=== PATIENT | female | born 1990 | race Caucasian/White ===

== ENCOUNTER 2016-08-16 17:31 | Emergency (ER) | payer MEDICAID ==
[2016-08-16 17:38] VITALS: RESP 18
--- NOTE | 2016-08-16 18:59 | C.PDOC ---
History Of Present Illness 26 y/o female presents to ED with c/o abdominal pain, nausea, vomiting, and diarrhea since yesterday. Patient's 4 y/o son also has similar symptoms at home. Denies fever, chills, cough, sore throat, headache, or other associated symptoms. Time Seen by Provider: 08/16/16 18:02 Chief Complaint (Nursing): GI Problem History Per: Patient History/Exam Limitations: no limitations Onset/Duration Of Symptoms: Days Current Symptoms Are (Timing): Still Present Recent travel outside of the [place]: No Past Medical History Reviewed: Historical Data, Nursing Documentation, Vital Signs Vital Signs: Last Vital Signs Temp 98.2 F 08/16/16 19:49 Pulse 75 08/16/16 19:49 Resp 18 08/16/16 19:49 BP 125/75 08/16/16 19:49 Pulse Ox 98 08/16/16 19:49 - Medical History PMH: No Chronic Diseases Surgical History: No Surg Hx Family History: States: Unknown Family Hx - Social History Hx Tobacco Use: No Hx Alcohol Use: Yes Hx Substance Use: No - Immunization History Hx Tetanus Toxoid Vaccination: No Hx Influenza Vaccination: No Hx Pneumococcal Vaccination: No Review Of Systems Except As Marked, All Systems Reviewed And Found Negative. Constitutional: Negative for: Fever, Chills Respiratory: Negative for: Cough, Shortness of Breath Gastrointestinal: Positive for: Nausea, Vomiting, Abdominal Pain, Diarrhea Skin: Negative for: Rash Neurological: Negative for: Headache, Dizziness Physical Exam - Physical Exam Appears: Well, Non-toxic, No Acute Distress Skin: Normal Color, Warm, Dry, No Rash Head: Atraumatic, Normacephalic Eye(s): bilateral: Normal Inspection Ear(s): Bilateral: Normal Oral Mucosa: Moist Throat: No Erythema, No Exudate Neck: Supple Chest: Symmetrical Cardiovascular: Rhythm Regular, No Friction Rub, No Murmur Respiratory: Normal Breath Sounds, No Rales, No Rhonchi, No Wheezing Gastrointestinal/Abdominal: Bowel Sounds (active), Soft, No Tenderness, No Distention, No Guarding, No Rebound Back: Normal Inspection, No CVA Tenderness Extremity: Normal ROM, Capillary Refill (< 2 sec. ) Neurological/Psych: Oriented x3, Normal Speech, Normal Cognition, Normal Motor Gait: Steady ED Course And Treatment O2 Sat by Pulse Oximetry: 100 (RA) Pulse Ox Interpretation: Normal Progress Note: On re-exam, patient reports improvement of symptoms. Lungs are CTA, heart is RRR, abdomen is soft, non-tender and tolerating PO well. Ambulatory in the ED with steady gait. Follow up with the medical doctor within 1-2 days. Return if worsened. Disposition - Disposition Referrals: [facility] [Outside] Disposition: HOME/ ROUTINE Disposition Time: 19:40 Condition: GOOD Additional Instructions: Follow up with the medical doctor within 1-2 days. Return if worsened. Prescriptions: Ondansetron ODT [Zofran ODT] 1 odt PO BID PRN #10 odt PRN Reason: Nausea/Vomiting Instructions: Gastroenteritis (ED) - Clinical Impression Clinical Impression: Gastroenteritis - PA / HOOD MAKER / Resident Statement MD/DO has reviewed & agrees with the documentation as recorded. - Scribe Statement The provider has reviewed the documentation as recorded by the Jaleel Jensen Provider Scribe Attestation: All medical record entries made by the Jaleel were at my direction and personally dictated by me. I have reviewed the chart and agree that the record accurately reflects my personal performance of the history, physical exam, medical decision making, and the department course for this patient. I have also personally directed, reviewed, and agree with the discharge instructions and disposition.
[2016-08-16 19:51] VITALS: BP 125/75; PULSE 75; TEMP 98.2
[2016-08-17 23:03] VITALS: O2SAT 100
== END 2016-08-16 19:51 | disposition home or self-care (01) ==
LOC: C.ER 17:31
DX: K52.9 Noninfective gastroenteritis and colitis, unspecified (principal)

== ENCOUNTER 2017-09-19 09:18 | Emergency (ER) | payer MEDICAID ==
[2017-09-19 09:28] VITALS: BMI 34.9
[2017-09-19 09:31] VITALS: TEMP 97.9
[2017-09-19] MEDS ORDERED: Dexamethasone 4 mg/1 ml IVP STA (09:43)
[2017-09-19] MEDS ORDERED: Lidocaine 5% Patch TD STA (09:45)
[2017-09-19 09:53] LABS: HCG,QUALITATIVE URINE NEGATIVE (NEGATIVE)
[2017-09-19] MEDS ORDERED: Lidocaine 5% Patch TD ONE (09:56)
[2017-09-19 09:58] LABS: SQUAMOUS EPITHIAL 6 /hpf (0-5); URINE BILIRUBIN NEGATIVE (NEGATIVE); URINE BLOOD 1+ (NEGATIVE); URINE CLARITY Clear (Clear); URINE COLOR Yellow (YELLOW); URINE GLUCOSE (UA) NORMAL (Normal); URINE LEUKOCYTE ESTERASE NEG Leu/uL (Negative); URINE PROTEIN NEGATIVE (NEGATIVE); URINE UROBILINOGEN NORMAL mg/dL (0.2-1.0)
--- NOTE | 2017-09-19 10:34 | RAD ---
PROCEDURE: Radiographs of the Lumbar Spine. HISTORY: low back pain COMPARISON: No prior. FINDINGS: BONES: Normal alignment. No listhesis. No fracture. DISC SPACES: Unremarkable. OTHER FINDINGS: None. IMPRESSION: Unremarkable radiographs of the lumbar spine.
[2017-09-19 10:53] VITALS: BP 109/70; PULSE 70; RESP 20; O2SAT 99
--- NOTE | 2017-09-19 11:02 | C.PDOC ---
History Of Present Illness Patient presents to ED with c/o left lower back pain since last night radiating to left leg worse with movement and bending forward. Patient states she took OTC advil with no improvement and reports similar episodes in the past. Patient denies trauma, numbness, weakness, abdominal pain, bowel/bladder incontinence or any other complaints at this time. Time Seen by Provider: 09/19/17 09:34 Chief Complaint (Nursing): Back Pain History Per: Patient History/Exam Limitations: no limitations Onset/Duration Of Symptoms: Days Current Symptoms Are (Timing): Still Present Quality Of Discomfort: "Pain" Exacerbating Factor(s): Movement Past Medical History Reviewed: Historical Data, Nursing Documentation, Vital Signs Vital Signs: Last Vital Signs Temp 97.9 F 09/19/17 09:28 Pulse 70 09/19/17 10:53 Resp 20 09/19/17 10:53 BP 109/70 09/19/17 10:53 Pulse Ox 99 09/19/17 11:20 - Medical History PMH: No Chronic Diseases Surgical History: No Surg Hx Family History: States: No Known Family Hx - Social History Hx Tobacco Use: No Hx Alcohol Use: Yes Hx Substance Use: No - Immunization History Hx Tetanus Toxoid Vaccination: No Hx Influenza Vaccination: No Hx Pneumococcal Vaccination: No Review Of Systems Except As Marked, All Systems Reviewed And Found Negative. Constitutional: Negative for: Fever, Chills Gastrointestinal: Negative for: Nausea, Vomiting Musculoskeletal: Positive for: Back Pain Skin: Negative for: Rash Neurological: Negative for: Weakness, Numbness Physical Exam - Physical Exam Appears: Non-toxic, No Acute Distress Skin: Warm, Dry, No Rash Head: Atraumatic, Normacephalic Eye(s): bilateral: Normal Inspection, PERRL, EOMI Ear(s): Bilateral: Normal Oral Mucosa: Moist Throat: Normal, No Erythema, No Exudate Neck: Normal ROM, Supple Cardiovascular: Rhythm Regular Respiratory: Normal Breath Sounds, No Rales, No Rhonchi, No Wheezing Gastrointestinal/Abdominal: Soft, No Tenderness, No Guarding, No Rebound Back: No CVA Tenderness, Muscle Spasm, Other (left sided paralumbar tenderness) Extremity: Normal ROM, No Tenderness, No Swelling Neurological/Psych: Oriented x3, Normal Speech, Normal Cognition, Normal Motor, Normal Sensation Gait: Steady ED Course And Treatment O2 Sat by Pulse Oximetry: 99 (RA) Pulse Ox Interpretation: Normal Medical Decision Making Medical Decision Making: On re-exam, the patient reports improvement of symptoms. Lungs are CTA, heart is RRR, abdomen is soft, non-tender and tolerating Po well. Ambulatory in the ED with steady gait. Patient was instructed to follow up with the medical doctor /clinic within 1-2 days. Return to the ED if worsened. Disposition - Disposition Referrals: Damion Palma MD [Non-Staff] - Disposition: HOME/ ROUTINE Disposition Time: 10:56 Condition: GOOD Additional Instructions: Follow up with the medical doctor within 1-2 days. Return if worsened. Prescriptions: Cyclobenzaprine [Flexeril] 5 mg PO TID #21 tab Lidocaine 5% [Lidoderm] 1 each TP DAILY #10 patch Naproxen [Naprosyn] 500 mg PO BID #20 tab Instructions: Low Back Pain in Adults, Sciatica Exercises Forms: [facility] (Comoran), Work Excuse - Clinical Impression Clinical Impression: Sciatica, Low back pain - PA / ASSISTANT PRESS OPERATOR / Resident Statement MD/DO has reviewed & agrees with the documentation as recorded. - Scribe Statement The provider has reviewed the documentation as recorded by the Lunaibfidel Anderson All medical record entries made by the Jaleel were at my direction and personally dictated by me. I have reviewed the chart and agree that the record accurately reflects my personal performance of the history, physical exam, medical decision making, and the department course for this patient. I have also personally directed, reviewed, and agree with the discharge instructions and disposition.
== END 2017-09-19 11:08 | disposition home or self-care (01) ==
LOC: C.ER 09:18
DX: M54.40 Lumbago with sciatica, unspecified side (principal)
CPT/HCPCS: 72100; 81001; 84703; 96372; 96374; 99283; J1100; J1885

== ENCOUNTER 2018-08-03 11:29 | Emergency (ER) | payer MEDICAID ==
[2018-08-03 11:29] VITALS: BMI 34.9
[2018-08-03] MEDS ORDERED: Sodium Chloride 0.9% 1,000 ML IV ONE (11:48)
[2018-08-03 12:06] LABS: BASO % 0.4 % (0.0-2.0); EOS % 0.1 % (0.0-4.0); HEMOGLOBIN 13.2 g/dL (11.0-16.0); LYMPH # 0.5 K/uL (1.0-4.3); LYMPH % 7.1 % (20.0-40.0); MEAN CORPUSCULAR HEMOGLOBIN 30.1 pg (27.0-31.0); MEAN CORPUSCULAR HGB CONC 34.6 g/dL (33.0-37.0); MEAN PLATELET VOLUME 9.1 fL (7.2-11.7); MONO # 0.3 K/uL (0.0-0.8); MONO % 4.5 % (0.0-10.0); NEUT # 6.4 K/uL (1.8-7.0); NEUT % 87.9 % (50.0-75.0); PLATELET COUNT 343 K/uL (130-400); RBC 4.39 Mil/uL (3.80-5.20); WHITE BLOOD COUNT 7.3 K/uL (4.8-10.8)
[2018-08-03 12:12] LABS: MEAN CELL VOLUME 87.2 fL (81.0-99.0)
[2018-08-03 12:17] LABS: ALB/GLOB RATIO 1.6 (1.0-2.1); ALBUMIN 4.7 g/dL (3.5-5.0); ALT/SGPT 29 U/L (9-52); AST/SGOT 27 U/L (14-36); BLOOD UREA NITROGEN 16 mg/dL (7-17); CALCIUM 9.5 mg/dl (8.6-10.4); GFR NON-AFRICAN AMERICAN > 60; LIPASE 27 U/L (23-300)
[2018-08-03 12:41] LABS: BANDS 2 % (0-2); LYMPHOCYTE 6 % (20-40); MONOCYTE 3 % (0-10); NEUTROPHIL 89 % (50-75); PLATELET ESTIMATE NORMAL (NORMAL); TOTAL CELLS COUNTED 100
[2018-08-03 12:42] LABS: ANISOCYTOSIS SLIGHT; BURR CELLS SLIGHT; POIKILOCYTOSIS SLIGHT; TEARDROP CELLS SLIGHT
[2018-08-03] MEDS ORDERED: Iohexol 240 (50 ml) PO STA (12:42)
[2018-08-03] MEDS ORDERED: Iohexol 240 (50 ml) ONE (12:49)
[2018-08-03] MEDS ORDERED: Iodixanol 320 MG/ML 100 ML BOTTLE IV ONE (12:53)
--- NOTE | 2018-08-03 13:21 | C.PDOC ---
History Of Present Illness 28 year old female presents to ED with complaint of nausea, vomiting, and diarrhea that began yesterday. Patient had a on 06/24/18. Patient also complains of right-sided abdominal pain. Patient denies fever, chills, and sick contacts. Time Seen by Provider: 08/03/18 11:48 Chief Complaint (Nursing): Abdominal Pain History Per: Patient History/Exam Limitations: no limitations Onset/Duration Of Symptoms: Days (1) Current Symptoms Are (Timing): Still Present Location Of Pain/Discomfort: RUQ, RLQ Radiation Of Pain To:: None Quality Of Discomfort: "Pain" Associated Symptoms: Nausea, Vomiting, Diarrhea. denies: Fever, Chills, Urinary Symptoms Exacerbating Factors: None Alleviating Factors: None Past Medical History Reviewed: Historical Data, Nursing Documentation, Vital Signs Vital Signs: Last Vital Signs Temp 98.5 F 08/03/18 11:34 Pulse 95 H 08/03/18 11:34 Resp 16 08/03/18 11:34 BP 125/85 08/03/18 11:34 Pulse Ox 97 08/03/18 11:34 - Medical History PMH: No Chronic Diseases Surgical History: (06/24/18) Family History: States: Unknown Family Hx - Social History Hx Tobacco Use: No Hx Alcohol Use: Yes Hx Substance Use: No - Immunization History Hx Tetanus Toxoid Vaccination: No Hx Influenza Vaccination: No Hx Pneumococcal Vaccination: No Review Of Systems Constitutional: Negative for: Fever, Chills, Weakness Gastrointestinal: Positive for: Nausea, Vomiting, Abdominal Pain (right-sided), Diarrhea Neurological: Negative for: Weakness, Numbness, Dizziness Physical Exam - Physical Exam Appears: Well, Non-toxic, No Acute Distress Skin: Normal Color, Warm, Dry Head: Atraumatic, Normacephalic Neck: Normal ROM, Supple Chest: Symmetrical, No Deformity Cardiovascular: Rhythm Regular, No Murmur Respiratory: No Accessory Muscle Use, No Rales, No Rhonchi, No Wheezing Gastrointestinal/Abdominal: Tenderness (right lower quadrant tenderness at McBurney's point. ), Other (mostly well-healed scar with 2 areas that release purulent discharge, nontender) Extremity: Capillary Refill (<2 seconds) Neurological/Psych: Oriented x3, Normal Speech, Normal Cognition ED Course And Treatment - Laboratory Results Result Diagrams: 08/03/18 12:00 08/03/18 12:00 Lab Results: Total Bilirubin 0.7 mg/dL (0.2-1.3) 08/03/18 12:00 AST 27 U/L (14-36) 08/03/18 12:00 ALT 29 U/L (9-52) 08/03/18 12:00 Alkaline Phosphatase 128 U/L (38-126) H 08/03/18 12:00 Total Protein 7.7 g/dL (6.3-8.3) 08/03/18 12:00 Albumin 4.7 g/dL (3.5-5.0) 08/03/18 12:00 Globulin 3.0 gm/dL (2.2-3.9) 08/03/18 12:00 Albumin/Globulin Ratio 1.6 (1.0-2.1) 08/03/18 12:00 Lipase 27 U/L (23-300) 08/03/18 12:00 O2 Sat by Pulse Oximetry: 97 (in RA) - CT Scan/US Abdomen/Pelvis CT Other Rad Studies (CT/US): Interpreted By Me, Read By Radiologist CT/US Interpretation: IMPRESSION: Minimal haziness noted anterior to the uterus, possibly infectious or inflammatory. No focal fluid collection or abscess. Colonic fluid suggests diarrheal illness. Additional findings as abov e. Medical Decision Making Medical Decision Making: Impression: 28 year old female presents to ED with complaint of nausea, vomiting, and diarrhea with right-sided abdominal pain that began yesterday Plan: Abdomen/Pelvis CT ordered for patient. Labs with CMP, urine culture, wound culture, and UA Patient given IV fluids and Zofran IVP 1551 ct reviewed, consistent with diarrheal illness. message left for ob emr implementation specialist. Dr Salinas. 1640 pt tolerated po fluids. will give tylenol. abdomen soft, nd, nt on re-exam. discussed with Dr Salinas. will put pt on keflex for slight purulent discharge from 2 spots on scar. Disposition Counseled Patient/Family Regarding: Studies Performed, Diagnosis, Need For Fo llowup, Rx Given - Disposition Referrals: Ventura Alatorre [Staff Provider] - Disposition: HOME/ ROUTINE Disposition Time: 16:41 Condition: IMPROVED Additional Instructions: Please drink increased fluids- take ondansetorn if needed for nausea. Avoid dairy, fruit and fiber for a few days. Eat plain white rice, baked potato. toast Take Keflex until completed. Tylenol for pain. Do not breast feed for 10 hours. Follow up with Dr Del Valle tomorrow and with your donor relations coordinator. . Prescriptions: Cephalexin [Keflex] 500 mg PO Q6 #28 capsule Ondansetron ODT [Zofran ODT] 4 mg PO TID #12 odt Instructions: Viral Gastroenteritis, Adult (DC) Forms: [facility] (Kiswahili), General Discharge Instructions - Clinical Impression Clinical Impression: Gastroenteritis, section wound complication - PA / BENDING SHED WORKER / Resident Statement MD/DO has reviewed & agrees with the documentation as recorded. (Angélica cuevas) - Scribe Statement The provider has reviewed the documentation as recorded by the Scribe (Angélica Wu) All medical record entries made by the Scribe were at my direction and personally dictated by me. I have reviewed the chart and agree that the record accurately reflects my personal performance of the history, physical exam, medical decision making, and the department course for this patient. I have also personally directed, reviewed, and agree with the discharge instructions and disposition.
[2018-08-03 13:58] LABS: SQUAMOUS EPITHIAL 5 /hpf (0-5); URINE BACTERIA RARE (<OCC); URINE BILIRUBIN NEGATIVE (NEGATIVE); URINE BLOOD NEGATIVE (NEGATIVE); URINE CLARITY Hazy (Clear); URINE COLOR Yellow (YELLOW); URINE GLUCOSE (UA) NORMAL (Normal); URINE LEUKOCYTE ESTERASE NEG Leu/uL (Negative); URINE PROTEIN NEGATIVE (NEGATIVE); URINE UROBILINOGEN NORMAL mg/dL (0.2-1.0)
[2018-08-03 14:56] VITALS: BP 132/74; PULSE 78; RESP 20; TEMP 98.2
--- NOTE | 2018-08-03 15:27 | CT ---
PROCEDURE: CT Abdomen and Pelvis with oral and IV contrast. HISTORY: rlq pain, pus from section scar COMPARISON: None available TECHNIQUE: Contiguous axial images of the abdomen and pelvis. Oral and IV contrast was administered. Coronal and Sagittal reformats generated and reviewed. Contrast dose: Radiation dose: Total exam DLP = 1247.47 mGy-cm. This CT exam was performed using one or more of the following dose reduction techniques: Automated exposure control, adjustment of the mA and/or kV according to patient size, and/or use of iterative reconstruction technique. FINDINGS: LOWER THORAX: No visible consolidation, pleural effusion, or pneumothorax. LIVER: Unremarkable. GALLBLADDER AND BILE DUCTS: Contracted gallbladder appears otherwise unremarkable. PANCREAS: Unremarkable. SPLEEN: Unremarkable. ADRENALS: Unremarkable. KIDNEYS AND URETERS: The kidneys enhance symmetrically. No hydronephrosis or obstructing renal calculus. BLADDER: The urinary bladder appears unremarkable. REPRODUCTIVE: Uterus is present. APPENDIX: The appendix appears within normal limits of caliber. No secondary signs of acute appendicitis. BOWEL: The stomach is nondistended. The bowel loops appear within normal limits of caliber without evidence of intestinal obstruction. Colonic fluid suggests diarrheal illness. PERITONEUM: No significant free fluid. No definite free air. LYMPH NODES: No bulky lymphadenopathy identified. VASCULATURE: No aortic aneurysm. No atherosclerotic calcification or mural plaque present. BONES: No acute osseous abnormality is detected. OTHER FINDINGS: Minimal haziness noted anterior to the uterus, possibly infectious or inflammatory. IMPRESSION: Minimal haziness noted anterior to the uterus, possibly infectious or inflammatory. No focal fluid collection or abscess. Colonic fluid suggests diarrheal illness. Additional findings as above.
[2018-08-03 15:52] VITALS: O2SAT 97
== END 2018-08-03 17:19 | disposition home or self-care (01) ==
LOC: C.ER 11:29
DX: K52.9 Noninfective gastroenteritis and colitis, unspecified (principal); T81.89XA Other complications of procedures, not elsewhere classified, initial encounter
CPT/HCPCS: 74177; 80053; 81001; 81025; 83690; 85025; 87070; 87086; 87181; 96361; 96374; 99285; J2405; J7030; Q9966; Q9967

== ENCOUNTER 2018-09-20 21:16 | Emergency (ER) | payer MEDICAID ==
[2018-09-20 21:16] VITALS: BMI 34.9
[2018-09-20 21:25] VITALS: RESP 20
[2018-09-20 22:08] LABS: SQUAMOUS EPITHIAL 4 /hpf (0-5); URINE BILIRUBIN NEGATIVE (NEGATIVE); URINE BLOOD NEGATIVE (NEGATIVE); URINE CLARITY Clear (Clear); URINE COLOR Yellow (YELLOW); URINE GLUCOSE (UA) NORMAL (Normal); URINE LEUKOCYTE ESTERASE NEG Leu/uL (Negative); URINE PROTEIN NEGATIVE (NEGATIVE)
[2018-09-20 22:10] LABS: HCG,QUALITATIVE URINE NEGATIVE (NEGATIVE)
[2018-09-20 22:11] LABS: BASO % 0.6 % (0.0-2.0); EOS # 0.3 K/uL (0.0-0.7); EOS % 3.7 % (0.0-4.0); HEMOGLOBIN 11.8 g/dL (11.0-16.0); LYMPH # 2.8 K/uL (1.0-4.3); LYMPH % 36.1 % (20.0-40.0); MEAN CELL VOLUME 87.8 fL (81.0-99.0); MEAN CORPUSCULAR HEMOGLOBIN 28.3 pg (27.0-31.0); MEAN CORPUSCULAR HGB CONC 32.2 g/dL (33.0-37.0); MEAN PLATELET VOLUME 8.6 fL (7.2-11.7); MONO # 0.5 K/uL (0.0-0.8); MONO % 6.9 % (0.0-10.0); NEUT # 4.2 K/uL (1.8-7.0); NEUT % 52.7 % (50.0-75.0); RBC 4.19 Mil/uL (3.80-5.20); RED CELL DISTRIBUTION WIDTH 15.8 % (11.5-14.5); WHITE BLOOD COUNT 7.9 K/uL (4.8-10.8)
--- NOTE | 2018-09-20 22:22 | C.PDOC ---
History Of Present Illness 28 year old female presents with several days of lower back pain, midline radiating to the right groin area. Denies changes in bowel habits, changes in urinations, nausea, vomiting, or fever. Patient states she had a baby three renu hs ago but has not had her period and does not believe she is . She states the pain is worse with movement, standing, and palpation. Denies Hx of similar pain in the past. Time Seen by Provider: 09/20/18 21:40 Chief Complaint (Nursing): Abdominal Pain History Per: Patient History/Exam Limitations: no limitations Onset/Duration Of Symptoms: Days Current Symptoms Are (Timing): Still Present Location Of Pain/Discomfort: Other (Lower back) Radiation Of Pain To:: Other (Right groin) Quality Of Discomfort: Unable To Describe Associated Symptoms: denies: Fever, Nausea, Vomiting, Urinary Symptoms, Other (Change in bowel habits) Exacerbating Factors: Movement, Other (Standing, palpation) Recent travel outside of the [place]: No Abnormal Vaginal Bleeding: No Past Medical History Reviewed: Historical Data, Nursing Documentation, Vital Signs Vital Signs: Last Vital Signs Temp 98.5 F 09/20/18 21:19 Pulse 78 09/20/18 21:19 Resp 20 09/20/18 21:19 BP 122/79 09/20/18 21:19 Pulse Ox 98 09/20/18 21:19 Primary Care Provider: Laureen Humphrey Surgical History: (06/24/18) Family History: States: Unknown Family Hx - Social History Hx Tobacco Use: No Hx Alcohol Use: Yes Hx Substance Use: No - Immunization History Hx Tetanus Toxoid Vaccination: No Hx Influenza Vaccination: No Hx Pneumococcal Vaccination: No Review Of Systems Constitutional: Negative for: Fever, Chills Cardiovascular: Negative for: Chest Pain, Palpitations Respiratory: Negative for: Cough, Shortness of Breath Gastrointestinal: Negative for: Nausea, Vomiting Genitourinary: Negative for: Dysuria, Hematuria Musculoskeletal: Positive for: Back Pain Neurological: Negative for: Weakness, Numbness Physical Exam - Physical Exam Appears: Non-toxic Skin: Normal Color, Warm Head: Atraumatic, Normacephalic Eye(s): bilateral: Normal Inspection Oral Mucosa: Moist Neck: Normal, Supple Chest: Symmetrical, No Tenderness Cardiovascular: Rhythm Regular Respiratory: Normal Breath Sounds, No Rales, No Rhonchi, No Wheezing Gastrointestinal/Abdominal: Soft, No Tenderness Back: Other (Pilonidal sinus tract draining pus at gluteal cleft with tenderness, no erythema or palpable abscess. Tenderness to right lumbar area.) Extremity: Normal ROM (x4), No Tenderness (Hip) Neurological/Psych: Oriented x3, Normal Speech ED Course And Treatment - Laboratory Results Result Diagrams: 09/20/18 22:07 09/20/18 22:07 Lab Results: Urine Color Yellow (YELLOW) 09/20/18 21:55 Urine Clarity Clear (Clear) 09/20/18 21:55 Urine pH 6.0 (5.0-8.0) 09/20/18 21:55 Ur Specific [place] 1.026 (1.003-1.030) 09/20/18 21:55 Urine Protein Negative mg/dL (NEGATIVE) 09/20/18 21:55 Urine Glucose (UA) Normal mg/dL (Normal) 09/20/18 21:55 Urine Ketones Negative mg/dL (NEGATIVE) 09/20/18 21:55 Urine Blood Negative (NEGATIVE) 09/20/18 21:55 Urine Nitrate Negative (NEGATIVE) 09/20/18 21:55 Urine Bilirubin Negative (NEGATIVE) 09/20/18 21:55 Urine Urobilinogen 4.0 mg/dL (0.2-1.0) H 09/20/18 21:55 Ur Leukocyte Esterase Neg Yue/uL (Negative) 09/20/18 21:55 Urine WBC (Auto) 1 /hpf (0-5) 09/20/18 21:55 Urine RBC (Auto) 2 /hpf (0-3) 09/20/18 21:55 Ur Squamous Epith Cells 4 /hpf (0-5) 09/20/18 21:55 Urine HCG, Qual Negative (NEGATIVE) 09/20/18 21:55 Urine HCG, Qual Negative (NEGATIVE) 09/20/18 21:55 Lab Interpretation: No Acute Changes O2 Sat by Pulse Oximetry: 98 (Room air) Pulse Ox Interpretation: Normal Progress Note: CT pelvis, blood work, and urinalysis ordered. Patient treated with IV Zosyn and Vancomycin. Reevaluation Time: 00:56 Reassessment Condition: Unchanged Disposition - Disposition Disposition Time: 00:56 Condition: STABLE Forms: [facility] (Tamazight) - Clinical Impression Clinical Impression: Pilonidal sinus without abscess - Scribe Statement The provider has reviewed the documentation as recorded by the Scribe Bright Horner All medical record entries made by the Scribe were at my direction and personally dictated by me. I have reviewed the chart and agree that the record accurately reflects my personal performance of the history, physical exam, medical decision making, and the department course for this patient. I have also personally directed, reviewed, and agree with the discharge instructions and disposition. Physician Patient Turnover Patient Signed Over To: Hermes Velasco Handoff Comments: pending CT results and IV antibiotic administration.
[2018-09-20 22:27] LABS: ALB/GLOB RATIO 1.3 (1.0-2.1); ALBUMIN 4.2 g/dL (3.5-5.0); ALT/SGPT 28 U/L (9-52); AST/SGOT 25 U/L (14-36); BLOOD UREA NITROGEN 16 mg/dL (7-17); CALCIUM 9.2 mg/dl (8.6-10.4); GFR NON-AFRICAN AMERICAN > 60
[2018-09-21] MEDS ORDERED: Piperacillin/Tazobact 3.375 GM in Sodium Chloride 100 ML IVPB STA (00:53)
[2018-09-21] MEDS ORDERED: Vancomycin 1 GM 1 GM/250 ML BAG IV STA (00:54)
[2018-09-21] MEDS ORDERED: Piperacillin/Tazobact 3.375 gm 100 ML IVPB ONE (01:06)
[2018-09-21] MEDS ORDERED: Vancomycin 1 GM 1 GM/250 ML BAG IVPB ONE (01:28)
[2018-09-21 03:28] VITALS: BP 108/72; PULSE 87; TEMP 98.2; O2SAT 99
--- NOTE | 2018-09-21 12:00 | CT ---
Date of service: 09/21/2018 PROCEDURE: CT pelvis HISTORY: pilonidal cyst/abscess COMPARISON: 08/03/2018 TECHNIQUE: 2.5 mm contiguous axial sections were acquired through the pelvis. Sagittal and coronal images were reformatted from the axial scan. Contrast administered: None Total exam DLP: 1410.76. This CT exam was performed using 1 or more of the following dose reduction techniques: Automated exposure control, adjustment of the mA and/or kV according to patient size, and/or use of iterative reconstruction technique. FINDINGS: The pelvis is free of mass or fluid collection. The uterus is unremarkable in appearance. It is anteverted. The cervix and vagina are unremarkable. The urinary bladder is normal in appearance. It is moderately distended. In the region of the cephalically aspect of the intergluteal cleft, there is a tiny dot of gas in the cleft, seen on series 3, image 102. This is of uncertain significance and is not associated with focal cutaneous thickening or subcutaneous collection. There is no pelvic lymphadenopathy. There is no ascites. There is no osseous abnormality identified. IMPRESSION: No significant abnormality identified. The preliminary findings for this examination were reported by [facility] Rad[facility] at 1:31 a.m. on 09/21/2018. There is discordance of this report with the preliminary findings. There is no evidence of perirectal sinus/fistula or stricture.
== END 2018-09-21 03:28 | disposition home or self-care (01) ==
LOC: C.ER 21:16
DX: L05.92 Pilonidal sinus without abscess (principal)
CPT/HCPCS: 72192; 80053; 81001; 84703; 85025; 87040; 96365; 96367; 99284; J2543; J3370